=== PATIENT | female | born 1980 | race Caucasian/White ===

== ENCOUNTER → 2024-05-14 | Outpatient (CLI) | payer OTHER ==
[2024-05-14 15:59] LABS: BASO # 0.01 K/mm3 (0.02-0.10); EOS # 0.19 K/mm3 (0.04-0.40); EOS % 2.8 % (1.0-5.0); HEMATOCRIT 38.2 % (37.0-47.0); HEMOGLOBIN 12.8 g/dL (12.5-16.0); LYMPH# 2.07 K/mm3 (1.50-4.00); MEAN CELL VOLUME 92 fl (78-100); MEAN CORPUSCULAR HEMOGLOBIN 31 pg (27-31); MEAN CORPUSCULAR HGB CONC 34 g/dL (33-37); MEAN PLATELET VOLUME 9.8 fl (7.4-10.4); MONO # 0.72 K/mm3 (0.20-0.80); NEU # 3.78 K/mm3 (1.40-6.50); PLATELET COUNT 273 K/mm3 (130-400); RED BLOOD COUNT 4.15 M/mm3 (4.10-5.30); RED CELL DISTRIBUTION WIDTH 12.9 % (11.5-14.5); WHITE BLOOD COUNT 6.8 K/mm3 (4.8-10.8)
[2024-05-14 16:04] LABS: ALBUMIN 4.3 g/dL (3.5-5.0)
[2024-05-14 16:05] LABS: CALCIUM 9.5 mg/dL (8.3-10.5)
[2024-05-14 16:06] LABS: TOTAL PROTEIN 7.3 g/dL (6.4-8.3)
[2024-05-14 16:08] LABS: TOTAL BILIRUBIN 0.2 mg/dL (0.2-1.2)
[2024-05-14 22:47] LABS: FOLLICLE STIMULATING HORMONE 3.7 mIU/mL (()); LUTENIZING HORMONE 2.3 mIU/mL (()); PROGESTERONE 0.1 ng/mL (()); T3 FREE 2.7 pg/mL (1.7-3.7)
== END ==
LOC: LAB 15:40
PROVIDERS: Family Medicine
DX: F41.1 Generalized anxiety disorder (principal); N91.1 Secondary amenorrhea; E78.5 Hyperlipidemia, unspecified; E55.9 Vitamin D deficiency, unspecified; E03.9 Hypothyroidism, unspecified; I10 Essential (primary) hypertension; R73.9 Hyperglycemia, unspecified